=== PATIENT | female | born 1985 | race Caucasian/White ===

== ENCOUNTER 2017-05-12 21:11 | Emergency (ER) | payer OTHER ==
[~2017-05-12] VITALS: Ht 170.2 cm; Wt 54.0 kg
--- NOTE | 2017-05-12 21:23 | NUR ---
PT BIBRA TO ER BED 10. PER REPORT, ANXIETY AND PANIC ATTACK. POSSIBLE SYNCOPAL EPISODE WHILE HAVING A MARRIAGE COUNSELING. 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 AWAITING MD DOVE.
[2017-05-12] MEDS ORDERED: ONDANSETRON HCL/PF 4 MG/2 ML VIAL IV ONE (22:00)
[2017-05-12] MEDS ORDERED: IV NS 0.9% 1,000 ML BAG IV ONE (22:00)
--- NOTE | 2017-05-12 22:00 | NUR ---
BLOOD DRAWN FROM EXISTING IVHL. SENT TO LAB.
[2017-05-12] MEDS ORDERED: ONDANSETRON HCL/PF 4 MG/2 ML VIAL ONE (22:04)
--- NOTE | 2017-05-12 22:05 | NUR ---
BRITTANY IZQUIERDO AT BEDSIDE FOR EVAL.
[2017-05-12 22:09] LABS: BASOPHILS % (AUTO) 0.4 % (0.0-2.0); EOSINOPHILS # (AUTO) 0.1 /CMM (0.0-0.7); EOSINOPHILS % (AUTO) 1.8 % (0.0-6.0); HEMATOCRIT 39 % (33-45); HEMOGLOBIN 13.3 g/dL (11.5-14.8); LYMPHOCYTES # (AUTO) 1.4 /CMM (0.8-4.8); LYMPHOCYTES % (AUTO) 23.8 % (20.0-44.0); MEAN CORPUSCULAR HEMOGLOBIN 33 PG (26.0-33.0); MEAN CORPUSCULAR HGB CONC 34 g/dl (31.0-36.0); MEAN CORPUSCULAR VOLUME 97 fL (82-100); MONOCYTES # (AUTO) 0.3 /CMM (0.1-1.30); MONOCYTES % (AUTO) 4.8 % (2.0-12.0); NEUTROPHILS # (AUTO) 3.9 /CMM (1.8-8.9); NEUTROPHILS % (AUTO) 69.2 % (43.0-81.0); PLATELET COUNT (AUTO) 245 /CMM (150-450); RDW COEFFICIENT OF VARIATION 12.4 (11.5-15.0); RED BLOOD CELL COUNT(AUTO) 4.04 MIL/uL (4.0-5.2); WHITE BLOOD COUNT (AUTO) 5.7 K/uL (4.3-11.0)
[2017-05-12 22:20] LABS: CALCIUM, SERUM 8.2 mg/dL (8.5-10.1); CREATININE 0.9 mg/dL (0.6-1.3); POTASSIUM 4.1 mmol/L (3.5-5.1)
[2017-05-12 23:26] LABS: APPEARANCE,URINE CLEAR (CLEAR); BILIRUBIN,URINE NEGATIVE (NEGATIVE); BLOOD, URINE NEGATIVE Ery/uL (NEGATIVE); COLOR,URINE YELLOW (YELLOW); KETONES,URINE NEGATIVE (NEGATIVE); LEUKOCYTE ESTERASE ,URINE NEGATIVE (NEGATIVE); NITRITE, URINE NEGATIVE (NEGATIVE); PROTEIN,URINE NEGATIVE (NEGATIVE); UGLUCOSE NEGATIVE (NEGATIVE); UROBILINOGEN,URINE 0.2 EU/dL (0.2)
--- NOTE | 2017-05-12 23:30 | NUR ---
REPORT TO CHARGE NURSE ANGELES FOR AURELIANO.
--- NOTE | 2017-05-13 00:33 | NUR ---
Patient discharged to home in stable condition. Written and verbal after care instructions given. Patient verbalizes understanding of instruction. IV removed. Catheter intact and site benign. Pressure and 4x4 applied to site. No bleeding noted. Ambulatory with a steady gait
[2017-05-13 00:34] VITALS: BP 113/72
== END 2017-05-13 00:35 | disposition home or self-care (01) ==
LOC: ER 21:13
DX: F41.9 Anxiety disorder, unspecified (principal); R42 Dizziness and giddiness
CPT/HCPCS: 36415; 80048-TC; 81000-TC; 82962-TC; 84703-TC; 85025-TC; A4606; J2405; J7030; Z7610

== ENCOUNTER 2018-03-28 20:49 | Emergency (ER) | payer BC, OTHER ==
[~2018-03-28] VITALS: Ht 170.2 cm; Wt 54.9 kg
--- NOTE | 2018-03-28 21:08 | NUR ---
BB FAMILY; SYNCOPE AT HOME, LIGHTHEADED, WEAKNESS, DIZZY, NAUSEA X 2 WEEKS. PT W/C TO ROOM. PT AOX3 RR EVEN AND UNLABORED. NO SOB NOTED. NAD NOTED. NO NVD AT THIS TIME. PT GOWNED AND PLACED ON MONITOR WAITING FOR MD DOVE.
--- NOTE | 2018-03-28 21:09 | NUR ---
/ [facility] AT BEDSIDE FOR EVAL.
[2018-03-28] MEDS ORDERED: FAMOTIDINE/PF INJ 20 MG/2 ML VIAL IV ONE ×2 (21:30→21:34)
[2018-03-28] MEDS ORDERED: ONDANSETRON HCL/PF 4 MG/2 ML VIAL IVP ONE (21:30)
[2018-03-28] MEDS ORDERED: IV NS 0.9% 1,000 ML BAG IV ONE (21:30)
--- NOTE | 2018-03-28 21:32 | NUR ---
LAB AT BEDSIDE FOR EVAL.
[2018-03-28] MEDS ORDERED: ONDANSETRON HCL/PF 4 MG/2 ML VIAL ONE (21:33)
--- NOTE | 2018-03-28 21:43 | NUR ---
PT REFUSED IV PEPCID. RISK AND BENEFITS EXPLAINED X3. PT STRONGLY REFUSED. DR. VALADEZ MADE AWARE
[2018-03-28 21:48] LABS: BASOPHILS % (AUTO) 0.4 % (0.0-2.0); EOSINOPHILS % (AUTO) 1.7 % (0.0-6.0); HEMATOCRIT 41 % (33-45); HEMOGLOBIN 14.3 g/dL (11.5-14.8); LYMPHOCYTES # (AUTO) 1.2 /CMM (0.8-4.8); LYMPHOCYTES % (AUTO) 30.9 % (20.0-44.0); MEAN CORPUSCULAR HGB CONC 35 g/dl (31.0-36.0); MEAN CORPUSCULAR VOLUME 96 fL (82-100); MONOCYTES # (AUTO) 0.2 /CMM (0.1-1.30); MONOCYTES % (AUTO) 4.3 % (2.0-12.0); NEUTROPHILS # (AUTO) 2.4 /CMM (1.8-8.9); NEUTROPHILS % (AUTO) 62.7 % (43.0-81.0); PLATELET COUNT (AUTO) 234 /CMM (150-450); RDW COEFFICIENT OF VARIATION 11.5 (11.5-15.0); RED BLOOD CELL COUNT(AUTO) 4.26 MIL/uL (4.0-5.2); WHITE BLOOD COUNT (AUTO) 3.9 K/uL (4.3-11.0)
[2018-03-28 22:02] LABS: INR 0.99 (0.85-1.15)
--- NOTE | 2018-03-28 22:02 | NUR ---
COLLECTED URINE. SENT TO LAB
[2018-03-28 22:05] LABS: ALANINE AMINOTRANSFERASE 18 U/L (12-78); ALBUMIN 3.9 g/dL (3.4-5.0); ALKALINE PHOSPHATASE 49 U/L (46-116); ASPARTATE AMINOTRANSFERASE 15 U/L (15-37); BILIRUBIN,DIRECT 0.2 mg/dL (0.0-0.2); BILIRUBIN,TOTAL 0.8 mg/dL (0.2-1.0); CALCIUM, SERUM 9.2 mg/dL (8.5-10.1); CARBON DIOXIDE 29 mmol/L (21-32); CHLORIDE 103 mmol/L (98-107); CREATININE 0.9 mg/dL (0.6-1.3); GLUCOSE 104 mg/dL (74-106); POTASSIUM 3.6 mmol/L (3.5-5.1); SODIUM SERUM 139 mmol/L (136-145); TOTAL PROTEIN, SERUM 7.7 g/dL (6.4-8.2); UREA NITROGEN, BLOOD 14 mg/dL (7-18)
[2018-03-28 22:07] LABS: TROPONIN I < 0.017 ng/mL (0.00-0.056)
--- NOTE | 2018-03-28 23:39 | NUR ---
PT TO CT VIA WC
--- NOTE | 2018-03-28 23:53 | NUR ---
PT RETURNED FROM CT.
--- NOTE | 2018-03-29 00:35 | NUR ---
PT DENIES N/V, PER OKAY FOR PT TO TAKE HOME MEDICATION AND DRINK WATER.
--- NOTE | 2018-03-29 01:10 | NUR ---
DR. MAGDALENO AT BEDSIDE SPEAKING TO PT REGARDING RESULTS.
--- NOTE | 2018-03-29 01:13 | NUR ---
IV removed. Catheter intact and site benign. Pressure and 4x4 applied to site. No bleeding noted. DPatient discharged to home in stable condition. Written and verbal after care instructions given. Patient verbalizes understanding of instruction. ambulatory with a steady gait
[2018-03-29 01:14] VITALS: BP 110/68
== END 2018-03-29 01:15 | disposition home or self-care (01) ==
LOC: ER 20:52
DX: R55 Syncope and collapse (principal); D64.9 Anemia, unspecified; F41.9 Anxiety disorder, unspecified
CPT/HCPCS: 36415; 70450-TC; 71045-TC; 80048-TC; 80076-TC; 84484-TC; 84703-TC; 85025-TC; 85730-TC; A4606; J2405; J3490; J7030; Z7610

== ENCOUNTER 2020-03-01 20:22 | Emergency (ER) | payer BC, OTHER ==
[~2020-03-01] VITALS: Ht 170.2 cm; Wt 58.1 kg
--- NOTE | 2020-03-01 20:37 | NUR ---
MICHAEL FROM HOME TO ER BED 7. DISORIENTED UPON PRESENTATION. TRANSFERED FROM WHEELCHAIR TO [facility] WITH MIN ASSIST. 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 PER BOYFRIEND, SEIZURE IS DESCRIBED SHAKING FOR 15-20SEC, CONFUSED AND LETHARGIC AFTER THE EPISODE. BOYFRIEND ALSO REPORTS THAT THE SAME INCIDENT HAPPENED 2 DAYS AGO. NO NOTED ORAL TRAUMA. PT IS REGAINING ORIENTATION WHILE BEING ASSESSED. BOYFRIEND REPORTS THAT SHE IS TAKING CELEXA @ 30MG AND BEING TITRATED DOWN TO 27.5MG BY OSYCHIATRIST. PT PLACED ON MONITOR. O2 SAT 100% ON RA. SEIZURE PRECAUTION IN PLACE WITH PADDED SIDERAIL. AWAITING MD FOR EVAL. WILL CONTINUE TO MONITOR.
[2020-03-01] MEDS: IV NS 0.9% 1,000 ML BAG IV ONE (21:08)
[2020-03-01 21:09] LABS: BASOPHILS % (AUTO) 0.6 % (0.0-2.0); EOSINOPHILS % (AUTO) 0.9 % (0.0-6.0); HEMATOCRIT 39 % (33-45); HEMOGLOBIN 13.3 g/dL (11.5-14.8); LYMPHOCYTES # (AUTO) 1.1 /CMM (0.8-4.8); LYMPHOCYTES % (AUTO) 20.1 % (20.0-44.0); MEAN CORPUSCULAR HGB CONC 34 g/dl (31.0-36.0); MEAN CORPUSCULAR VOLUME 97 fL (82-100); MONOCYTES # (AUTO) 0.2 /CMM (0.1-1.30); MONOCYTES % (AUTO) 4.3 % (2.0-12.0); NEUTROPHILS # (AUTO) 4.2 /CMM (1.8-8.9); NEUTROPHILS % (AUTO) 74.1 % (43.0-81.0); PLATELET COUNT (AUTO) 217 /CMM (150-450); RED BLOOD CELL COUNT(AUTO) 4.03 MIL/uL (4.0-5.2); WHITE BLOOD COUNT (AUTO) 5.7 K/uL (4.3-11.0)
[2020-03-01 21:21] LABS: ALBUMIN 3.5 g/dL (3.4-5.0); BILIRUBIN,DIRECT 0.1 mg/dL (0.0-0.2); BILIRUBIN,TOTAL 0.6 mg/dL (0.2-1.0); CALCIUM, SERUM 8.5 mg/dL (8.5-10.1); CREATININE 0.8 mg/dL (0.6-1.3); POTASSIUM 3.6 mmol/L (3.5-5.1); TOTAL PROTEIN, SERUM 6.9 g/dL (6.4-8.2)
--- NOTE | 2020-03-01 21:41 | NUR ---
TIMBO SOTO AWARE PT IS UNABLE TO URINATE AT THIS TIME. FLUID ARE RUNNING
--- NOTE | 2020-03-01 23:29 | NUR ---
PO TRIALS TOLERATED BY THE PATIENT.
--- NOTE | 2020-03-01 23:30 | NUR ---
Patient discharged to home in stable condition. Written and verbal after care instructions given. Patient verbalizes understanding of instruction.IV removed. Catheter intact and site benign. Pressure and 4x4 applied to site. No bleeding noted. Pt ambulatory with a steady gait
[2020-03-01 23:31] VITALS: BP 86/109
--- NOTE | 2020-03-01 23:31 | NUR ---
pt picked up by .
== END 2020-03-01 23:32 | disposition home or self-care (01) ==
LOC: ER 20:22
DX: R56.9 Unspecified convulsions (principal); R41.0 Disorientation, unspecified; F41.9 Anxiety disorder, unspecified
CPT/HCPCS: 36415; 70450; 71045; 80048; 80076; 80305; 80307; 82962; 84703; 85025; 93005; 96360; 99285; J7030 ×2; G0480